=== PATIENT | female | born 1965 | race Caucasian/White ===

== ENCOUNTER 2017-02-20 05:17 | Inpatient (IN) | payer OTHER ==
[2017-02-15 10:47] VITALS: BMI 23.2
[~2017-02-20] VITALS: Ht 152.4 cm; Wt 54.4 kg
[2017-02-20] VITALS (17 sets, daily range): BP systolic 91–130; BP diastolic 52–85; PULSE 71–120; RESP 14–24; Ht 152.4 cm; Wt 54.4 kg
[~2017-02-20 05:17] MED LIST: ESCI20TA PO; MELA5TAB4 PO
[2017-02-20] MEDS ORDERED: CEFAZOLIN 2 GM/50 ML (PMX) 50 ML IVPB ONE (06:00)
[2017-02-20] MEDS ORDERED: LACTATED RINGER'S 1,000 ML IV* SCH ×2 (06:30)
[2017-02-20] MEDS ORDERED: BUPIVACAINE 0.25% (MPF) 10 ML 10 ML VIAL ONE (06:44)
[2017-02-20] MEDS ORDERED: GELATIN SIZE 100 SPONGE ONE (06:44)
[2017-02-20] MEDS ORDERED: POLYMYXIN/BACITRACIN 1L IRRIG ONE (06:44)
[2017-02-20] MEDS ORDERED: THROMBIN 5000 UNIT VIAL ONE (06:44)
--- NOTE | 2017-02-20 06:51 | HPN ---
Date/Time of Note Date/Time of Note DATE: 02/20/17 TIME: 06:51 Interval H&P Admission Note Pt. seen H&P reviewed: No system changes MARYELLEN CAMACHO MD Feb 20, 2017 06:51
[2017-02-20] MEDS ORDERED: ROCURONIUM 50 MG INJ ONE (06:59)
[2017-02-20] MEDS ORDERED: SUCCINYLCHOLINE CHLORIDE 100 MG/5 ML SYG IV ONE (06:59)
[2017-02-20] MEDS ORDERED: LIDOCAINE 1% (MDV) 20 ML INJ ONE (06:59)
[2017-02-20] MEDS ORDERED: MIDAZOLAM 1 MG/ML 2 ML INJ ONE (06:59)
[2017-02-20] MEDS ORDERED: PROPOFOL 20 ML ONE (06:59)
[2017-02-20] MEDS ORDERED: PHENYLephrine (100 MCG/ML) 5ML SYG ONE (07:11)
[2017-02-20] MEDS ORDERED: ONDANSETRON 4 MG INJ ONE (07:25)
[2017-02-20] MEDS ORDERED: DEXAMETHASONE 4 MG/ML 1 ML INJ ONE (07:25)
[2017-02-20] MEDS ORDERED: FAMOTIDINE 20 MG INJ ONE (07:25)
[2017-02-20] MEDS ORDERED: HYDROmorphONE (0.2 MG/ML) 10ML SYG IV PRN ×2 (09:00)
[2017-02-20] MEDS ORDERED: DIPHENHYDRAMINE 50 MG INJ IV PRN (09:00)
[2017-02-20] MEDS ORDERED: ONDANSETRON 4 MG INJ IV PRN ×2 (09:00→10:00)
[2017-02-20] MEDS ORDERED: LORAZEPAM 2 MG INJ IV PRN (09:00)
[2017-02-20] MEDS ORDERED: METOCLOPRAMIDE 10 MG INJ IV PRN (09:00)
[2017-02-20] MEDS ORDERED: MEPERIDINE 25 MG INJ IV PRN (09:00)
[2017-02-20] MEDS ORDERED: TRIMETHOBENZAMIDE 100 MG/ML VIAL IM PRN ×2 (09:00→10:00)
[2017-02-20] MEDS ORDERED: FENTAnyl 50 MCG/ML VIAL IV PRN ×2 (09:00)
[2017-02-20] MEDS ORDERED: SUGAMMADEX SODIUM 200 MG/2 ML VIAL IV ONE (09:24)
[2017-02-20] MEDS ORDERED: BETHANECHOL 25 MG TAB PO PRN (10:00)
[2017-02-20] MEDS ORDERED: NACL 0.9% 3 ML SYG IV SCH (10:00)
[2017-02-20] MEDS ORDERED: NALOXONE (0.4 MG/ML) INJ IV PRN (10:00)
[2017-02-20] MEDS ORDERED: DIAZEPAM 5 MG/ML SYG IM PRN (10:00)
[2017-02-20] MEDS ORDERED: DIAZEPAM 5 MG TAB PO PRN (10:00)
[2017-02-20] MEDS ORDERED: ZOLPIDEM 5 MG TAB PO PRN (10:00)
[2017-02-20] MEDS ORDERED: PROCHLORPERAZINE 10 MG TAB PO PRN (10:00)
[2017-02-20] MEDS ORDERED: ACETAMINOPHEN 325 MG TAB PO PRN (10:00)
[2017-02-20] MEDS ORDERED: AL HYDROX/MG HYDROX/SIMETH 30 ML CUP PO PRN (10:00)
[2017-02-20] MEDS ORDERED: CEPASTAT LOZENGE MT PRN (10:00)
[2017-02-20] MEDS ORDERED: HYDROCODONE/APAP (5/325) TAB PO PRN (10:00)
[2017-02-20] MEDS ORDERED: DIPHENHYDRAMINE 50 MG CAP PO PRN (10:00)
--- NOTE | 2017-02-20 10:03 | SIPON ---
Date/Time of Note Date/Time of Note DATE: 02/20/17 TIME: 09:54 Operative Report Preoperative Diagnosis Herniated disc at T9-10 on the left with extruded fragments Postoperative Diagnosis Same Operation/Procedure Performed Left hemilaminectomy T8 Left Hemilaminectomy T9 Partial left hemilaminectomy T10 Transpedicular microdiscectomy T9-10 on the left Cosmetic wound closure (10 cm) Multiple AP and lateral intraoperative fluoroscopic images Intraoperative nerve monitoring (90 minutes) Surgeon see signature line residential assistant Boston Cota MD Second assist: TOMASZ DE LOS SANTOS PA-C Anesthesia: general Estimated blood loss: 10 - 50 ml's Transfusion Required none Specimen Disk T9-10 Grafts/Implants none Complications none MARYELLEN CAMACHO MD Feb 20, 2017 10:03
[2017-02-20] MEDS: HYDROmorphONE 0.2 MG/ML PCA IV SCH ×2 (10:26→22:10)
--- NOTE | 2017-02-20 10:31 | RADRPT ---
PROCEDURE: Intraoperative imaging of the thoracic spine with fluoroscopy. CLINICAL INDICATION: Pain. Intraoperative. TECHNIQUE: 11 images of the thoracic spine were obtained in the operating room with an image inten sifier. No radiologist was in attendance. Fluoroscopy time is 16.9 seconds. COMPARISON: No prior study is available for comparison. FINDINGS: Images demonstrate surgical instruments overlying the thoracic spine inferiorly. IMPRESSION: 1. Intraoperative imaging of the thoracic spine. RPTAT: QQ .Tae Callejas MD, MD Date Time Electronically viewed and signed by .Tae Callejas MD, on 02/20/2017 10:30 .R/
[2017-02-20] MEDS: DEXTROSE 5%-0.45% NACL 1,000 ML IV SCH ×3 (10:59→22:09)
--- NOTE | 2017-02-20 11:09 | OPR ---
DATE OF OPERATION: 02/20/2017 POSTOPERATIVE DIAGNOSIS: Herniated disc, T9-10 on the left. Operation procedures. OPERATIVE PROCEDURES: 1. Left mao laminectomy T8. 2. Left mao laminectomy T9. 3. Partial left mao laminectomy T10. 4. Transpedicular microdiskectomy at T9-10 on the left. 5. Cosmetic wound closure (10 cm). 6. AP and lateral intraoperative fluoroscopic images (multiple). 7. Intraoperative nerve monitoring (90 minutes). SURGEON: 1. Shane Lincoln MD. ASSISTANTS: 1. Boston Cota MD. 2. 2nd addictions counselor assistant Rivas Barth. ESTIMATED BLOOD LOSS: Was 30 cc-none replaced. DRAINS: Two medium Hemovac drains applied. COMPLICATIONS: No complications. PERTINENT HISTORY AND PHYSICAL: This is a 52-year-old female with severe mid back pain radiating around the left intercostal rib cage area, which has been nonresponsive to extensive conservative management. She has undergone a number of diagnostic studies, which demonstrated a herniated disc at T9-10 on the left with cord compression. Treatment options discussed with the patient, and she would like to proceed with surgery. OPERATIVE FINDING AT SURGERY: A moderate extruded disc herniation at T9-10 on the left was confirmed with some free disc material on the floor of the canal underneath the cord. The intraoperative nerve monitor revealed a decrease in the left cord signal of 20 percent, which returned to normal at the completion of the surgery. OPERATIVE PROCEDURE: With the patient in supine position after satisfactory induction of general trach anesthesia by Dr. Frazier, the patient was turned to the prone position on the radiolucent OSI table with the Nathaniel frame. All pressure points were carefully padded. The back was prepped and draped in the usual sterile fashion. Athrombic pumps were applied to legs below the knees for venous stasis during and after procedure and an indwelling Rios catheter was also placed preoperative to facilitate bladder drainage during and after the procedure. A spinal needle was placed into what was felt the spinous process of T9 and a AP and a lateral fluoroscopic image taken which demonstrated the needle to be at T10. The 10 cm incision encountered midline from approximately T8-T11 through skin and subcutaneous tissue to the deep fascia after the skin was infiltrated with 0.25 percent Marcaine without epinephrine for postoperative analgesia. Superficial retractors were placed and hemostasis secured with electrocautery. A 2nd intraoperative radiograph was taken with a needle placed in what was felt to be the T9 spinous process. This was confirmed from the 2nd x-ray. A left mao laminectomy at T8, T9, and the superior part of T10 was then carried out using Kerrison punches and curettes and Leksell rongeurs. The high-speed [place] bur was then used to drill down the pedicle of T10 on the left and T9 on the left. This facilitated access to the floor of the canal without disturbing the cord. An extruded disc herniation at T9-10 on the left was confirmed and multiple degenerative disc fragments were harvested with pituitary rongeurs and Dustin curette and sent to the laboratory for pathologic study. The cord signals returned to normal at this point. The anesthesiologist was asked to perform a Valsalva maneuver 40 mmHg. No spinal fluid leak was noted. The epidural hemostasis was secured with bipolar electrocautery on a low setting. The wound was then closed over 2 medium Hemovac drains, one below the fascia, one above the fascia using number 1 Stratafix sutures on the deep parathoracic muscles and deep fascia, 2-0 Stratafix suture to the subcu tissue and a 4-0 Vicryl subcuticular cosmetic closing suture on the skin. Dermabond and sterile compressive dressings were applied. Patient tolerated the procedure well was then turned to supine position onto her bed and extubated by Dr. Frazier. She was transported to the recovery room in satisfactory condition. At the conclusion of the procedure, sponge, instrument, needle counts were all correct. NEED FOR STRUCTURAL BIOLOGIST: During this spinal surgical procedure, my addictions counselor assistant was used to retract and protect the spinal nerves and dural sac. My addictions counselor assistant also employed the suction catheters to evacuate blood from the surgical field to improve visualization of the neural structures. The addictions counselor assistant was medically necessary to facilitate the completion of the surgery in a safe and expeditious manner. State of [place] regulations, as well as hospital bylaws, preclude the use of non- licensed health care personnel such as operating room technicians, to perform these functions. Throughout the procedure neuro monitoring was carried out by [employer] including EMG, SSEP and MEP monitoring of the thoracic cord. This was interpreted by a neurologist employed by [employer]. Dictated By: Shane Lincoln MD /hannah/tali /Document#: [id number] CC: Boston Cota MD; Steven Molina MD
[2017-02-20] MEDS: CEFAZOLIN 1 GM/50 ML (PMX) 50 ML IVPB SCH ×2 (11:34→17:54)
--- NOTE | 2017-02-20 14:14 | CONS ---
Date/Time of Note Date/Time of Note DATE: 02/20/17 TIME: 14:00 Assessment/Plan Assessment/Plan Chief Complaint/Hosp Course upper and lower back pian post op thoracic spine surgery Problems: Additional Assessment/Plan will reorder pre-op meds and follow with you thank you anabela Consultation Date/Type/Reason Admit Date/Time Feb 20, 2017 at 05:17 Date of Consultation: Feb 20, 2017 Type of Consultation: internal medicine Reason for Consultation medical f/u and monitoring Referring Provider: MARYELLEN CAMACHO MD Constitutional: no complaints Eyes: no complaints ENT: no complaints Respiratory: no complaints Cardiovascular: no complaints Gastrointestinal: no complaints Genitourinary: no complaints Musculoskeletal: back pain Skin: no complaints Neurologic: dizziness, focal-weakness Endocrine: no complaints Psychological: no complaints Immunologic: no complaints Additional Comments post op thoracic spine surgery Past Medical History Medical History: no pertinent history Past Surgical History nose surgery in past Family History Significant Family History: heart disease, hypertension 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 Alcohol Use: occasionally Smoking Status: Never smoker Drug Use: none Exam/Review of Systems Vital Signs Vitals Vital Signs Date Time Temp Pulse Resp B/P Pulse Ox O2 Delivery O2 Flow Rate FiO2 02/20/17 13:00 16 02/20/17 11:21 98.0 02/20/17 11:00 Nasal Cannula 2.0 02/20/17 10:26 106 127/74 99 Exam Constitutional: alert ENMT: nl external ears & nose Neck: supple Respiratory: clear to auscultation Cardiovascular: regular rate and rhythm Gastrointestinal: soft Medications Medications Current Medications Lactated Ringer's 1,000 ml @ 20 mls/hr Q24H IV* ; Start 02/20/17 at 06:30; Stop 02/22/17 at 08:29 Lactated Ringer's 1,000 ml @ 20 mls/hr Q24H IV* ; Start 02/20/17 at 06:30; Stop 02/22/17 at 08:29 Dextrose/Sodium Chloride (D5-1/2ns) 1,000 ml @ 100 mls/hr Q10H IV Last administered on 02/20/17t 10:59; Admin Dose 100 MLS/HR; Start 02/20/17 at 09:48 Acetaminophen/ Hydrocodone Bitart ([place] (5/325)) 1 tab Q4H PRN PO PAIN LEVEL 1 -5; Start 02/20/17 at 10:00 Acetaminophen/ Hydrocodone Bitart 2 tab 2 tab Q4H PRN PO PAIN LEVEL 6-10; Start 02/20/17 at 10:00 Cefazolin Sodium (Ancef 1 Gm/50 ml (Pmx)) 50 ml @ 100 mls/hr Q6 IVPB Last administered on 02/20/17t 11:34; Admin Dose 100 MLS/HR; Start 02/20/17 at 12:00 ; Stop 02/21/17 at 06:29 Zolpidem Tartrate (Ambien) 5 mg HS PRN PO INSOMNIA; Start 02/20/17 at 10:00 Prochlorperazine (Compazine) 10 mg Q4H PRN PO NAUSEA AND/OR VOMITING; Start at 10:00 Trimethobenzamide HCl (Tigan) 200 mg Q4H PRN IM NAUSEA AND/OR VOMITING; Start 02/20/17 at 10:00 Ondansetron HCl (Zofran Inj) 4 mg Q6H PRN IV NAUSEA AND/OR VOMITING; Start at 10:00 Al Hydrox/Mg Hydrox/Simethicone (Mag-Al Plus) 15 ml Q4H PRN PO CONSTIPATION; Start 02/20/17 at 10:00 Docusate Sodium (Colace) 100 mg BID PO ; Start 02/21/17 at 09:00 Acetaminophen (Tylenol Tab) 650 mg Q4H PRN PO TEMP GREATER THAN 101F OR [place]; Start 02/20/17 at 10:00 Ascorbic Acid (Vitamin C) 1,000 mg BID PO ; Start 02/21/17 at 09:00 Ferrous Sulfate (Ferrous Sulfate (Ec)) 325 mg TID PO ; Start 02/21/17 at 09:00 Ranitidine HCl (Zantac) 150 mg BID PO ; Start 02/20/17 at 21:00 Diazepam (Valium) 5 mg Q4H PRN PO MUSCLE SPASMS; Start 02/20/17 at 10:00 Diazepam (Valium) 5 mg Q4H PRN IM MUSCLE SPASMS; Start 02/20/17 at 10:00 Phenol (Cepastat Lozenge) 1 lozenge PRN PRN MT SORE THROAT; Start 02/20/17 at 10:00 Bethanechol Chloride (Urecholine) 25 mg PRN PRN PO UNABLE TO VOID; Start at 10:00 Diphenhydramine HCl (Benadryl) 50 mg Q6H PRN PO PRURITUS; Start 02/20/17 at 10: 00 Hydromorphone HCl (Dilaudid ACCOUNTING MANAGER CPA) Q4PCA IV Last administered on 02/20/17t 10:26 ; Admin Dose 6 MG; Start 02/20/17 at 10:00 Naloxone HCl (Narcan) 0.2 mg Q2M PRN IV RR 8 BREATHS/MIN OR LESS; Start at 10:00 Procedures Procedures post thoracic spine surgery ANGELINE BLANCHARD MD Feb 20, 2017 14:10
[2017-02-20] MEDS: RANITIDINE 150 MG TAB PO SCH (20:56)
[2017-02-20] MEDS ORDERED: NON-FORMULARY/PATIENT OWN MED (Melatonin 5 MG) PO SCH (21:00)
[2017-02-21] MEDS: CEFAZOLIN 1 GM/50 ML (PMX) 50 ML IVPB SCH ×2 (00:59→06:11)
[2017-02-21 02:36] VITALS: BP 107/60; RESP 18
[2017-02-21 05:19] LABS: HEMATOCRIT 33.7 % (37.0-47.0)
[2017-02-21] MEDS: DEXTROSE 5%-0.45% NACL 1,000 ML IV SCH ×2 (05:35→15:48)
[2017-02-21 05:43] LABS: CALCIUM 8.4 mg/dl (8.4-10.2); CREATININE 0.67 mg/dl (0.44-1.00); POTASSIUM 3.9 mmol/L (3.5-5.1)
--- NOTE | 2017-02-21 07:05 | PN ---
Date/Time of Note Date/Time of Note DATE: 02/21/17 TIME: 07:04 Assessment/Plan Lines/Catheters IV Catheter Type (from Nrsg): Peripheral IV Rios in Place (from Nrsg): Yes Subjective 24 Hr Interval Summary The patient is postop day #1 following a microdiscectomy at T9-10 on the left. She is resting comfortably. Her morning lab work is unremarkable. Neurovascular structures are intact distally. Her Hemovac has minimal drainage and will be discontinued. Her incision is clean and dry and was redressed. She will be mobilized as tolerated with physical therapy, and discharged home when cleared by physical therapy. Discharge precautions and instructions as well as follow-up arrangements have been discussed. Exam/Review of Systems Vital Signs Vitals Vital Signs Date Time Temp Pulse Resp B/P Pulse Ox O2 Delivery O2 Flow Rate FiO2 02/21/17 06:54 17 02/21/17 02:36 97.9 72 107/60 97 02/20/17 20:00 Nasal Cannula 2.0 Intake and Output 02/20/17 02/20/17 02/21/17 15:00 23:00 07:00 Intake Total 1550 ml 1270 ml 640 ml Output Total 910 ml 890 ml 1402 ml Balance 640 ml 380 ml -762 ml Results Result Diagram: 02/21/17 0434 02/21/17 0434 MARYELLEN CAMACHO MD Feb 21, 2017 07:05
[2017-02-21 07:57] VITALS: BP 99/54; RESP 19
[2017-02-21] MEDS ORDERED: BETHANECHOL 25 MG TAB PO PRN (08:00)
[2017-02-21] MEDS: FERROUS SULFATE (EC) 325 MG TAB PO SCH ×2 (08:55→13:36)
[2017-02-21] MEDS: RANITIDINE 150 MG TAB PO SCH (08:56)
[2017-02-21] MEDS ORDERED: ESCITALOPRAM 10 MG TAB PO SCH (09:00)
[2017-02-21] MEDS ORDERED: DOCUSATE SODIUM 100 MG CAP PO SCH (09:00)
[2017-02-21] MEDS ORDERED: ASCORBIC ACID 500 MG TAB PO SCH (09:00)
[2017-02-21] MEDS: HYDROCODONE/APAP (5/325) TAB PO PRN ×2 (09:21→13:36)
[2017-02-21 12:54] VITALS: BP 88/50; RESP 18
[2017-02-21 13:11] LABS: ADD UMIC YES; UR ASCORBIC ACID NEGATIVE (NEGATIVE); UR BILIRUBIN (Dip) NEGATIVE (NEGATIVE); UR BLOOD (Dip) 2+ mg/dL (NEGATIVE); UR CLARITY CLEAR (CLEAR); UR COLOR YELLOW (YELLOW); UR GLUCOSE (Dip) NEGATIVE (NEGATIVE); UR KETONES (Dip) NEGATIVE (NEGATIVE); UR LEUKOCYTE ESTERASE (Dip) NEGATIVE Leu/ul (NEGATIVE); UR MUCUS FEW /HPF (NONE SEEN); UR NITRITE (Dip) NEGATIVE (NEGATIVE); UR RBC 5 /HPF (0-5); UR SPECIFIC GRAVITY (Dip) 1.015 (1.003-1.030); UR TOTAL PROTEIN (Dip) NEGATIVE (NEGATIVE); UR UROBILINOGEN (Dip) NEGATIVE (NEGATIVE)
--- NOTE | 2017-02-21 17:44 | CONS ---
Date/Time of Note Date/Time of Note DATE: 02/21/17 TIME: 17:41 Consult Date/Type/Reason Admit Date/Time Feb 20, 2017 at 05:17 Initial Consult Date 02/20/17 Type of Consultation: internal medicine Ordering Provider: MARYELLEN CAMACHO MD Subjective patient doing better got out of bed yesterday will be walking more today Objective Vital Signs Date Time Temp Pulse Resp B/P Pulse Ox O2 Delivery O2 Flow Rate FiO2 02/21/17 12:54 98.0 76 18 88/50 96 02/20/17 20:00 Nasal Cannula 2.0 Intake and Output 02/20/17 02/20/17 02/21/17 15:00 23:00 07:00 Intake Total 1550 ml 1270 ml 640 ml Output Total 910 ml 890 ml 1402 ml Balance 640 ml 380 ml -762 ml Exam vss heent negative lungs clear heart regular rhythm abd, soft Results/Medications Result Diagram: 02/21/17 0434 02/21/17 0434 Results 24 hrs Laboratory Tests Test 02/21/17 04:34 02/21/17 08:40 Hemoglobin 11.0 L Hematocrit 33.7 L Sodium Level 141 Potassium Level 3.9 Chloride Level 107 Carbon Dioxide Level 30 Anion Gap 8 Blood Urea Nitrogen 8 Creatinine 0.67 Glucose Level 126 Calcium Level 8.4 Urine Color YELLOW Urine Clarity CLEAR Urine pH 5.0 Urine Specific [place] 1.015 Urine Ketones NEGATIVE Urine Nitrite NEGATIVE Urine Bilirubin NEGATIVE Urine Urobilinogen NEGATIVE Urine Leukocyte Esterase NEGATIVE Urine Microscopic RBC 5 Urine Microscopic WBC 1 Urine Mucus FEW A Urine Hemoglobin 2+ H Urine Glucose NEGATIVE Urine Total Protein NEGATIVE Medications Current Medications Lactated Ringer's 1,000 ml @ 20 mls/hr Q24H IV* ; Start 02/20/17 at 06:30; Stop 02/22/17 at 08:29 Lactated Ringer's 1,000 ml @ 20 mls/hr Q24H IV* ; Start 02/20/17 at 06:30; Stop 02/22/17 at 08:29 Dextrose/Sodium Chloride (D5-1/2ns) 1,000 ml @ 100 mls/hr Q10H IV Last administered on 02/21/17t 05:35; Admin Dose 100 MLS/HR; Start 02/20/17 at 09:48 Acetaminophen/ Hydrocodone Bitart ([place] (5/325)) 1 tab Q4H PRN PO PAIN LEVEL 1 -5; Start 02/20/17 at 10:00 Acetaminophen/ Hydrocodone Bitart ([place] (5/325)) 2 tab Q4H PRN PO PAIN LEVEL 6 -10 Last administered on 02/21/17 13:36; Admin Dose 2 TAB; Start 02/20/17 at 10 :00 Zolpidem Tartrate (Ambien) 5 mg HS PRN PO INSOMNIA; Start 02/20/17 at 10:00 Prochlorperazine (Compazine) 10 mg Q4H PRN PO NAUSEA AND/OR VOMITING; Start at 10:00 Trimethobenzamide HCl (Tigan) 200 mg Q4H PRN IM NAUSEA AND/OR VOMITING; Start 02/20/17 at 10:00 Ondansetron HCl (Zofran Inj) 4 mg Q6H PRN IV NAUSEA AND/OR VOMITING; Start at 10:00 Al Hydrox/Mg Hydrox/Simethicone (Mag-Al Plus) 15 ml Q4H PRN PO CONSTIPATION; Start 02/20/17 at 10:00 Docusate Sodium (Colace) 100 mg BID PO Last administered on 02/21/17 08:56; Admin Dose 100 MG; Start 02/21/17 at 09:00 Acetaminophen (Tylenol Tab) 650 mg Q4H PRN PO TEMP GREATER THAN 101F OR [place]; Start 02/20/17 at 10:00 Ascorbic Acid (Vitamin C) 1,000 mg BID PO Last administered on 02/21/17 08:56 ; Admin Dose 1,000 MG; Start 02/21/17 at 09:00 Ferrous Sulfate (Ferrous Sulfate (Ec)) 325 mg TID PO Last administered on 13:36; Admin Dose 325 MG; Start 02/21/17 at 09:00 Ranitidine HCl (Zantac) 150 mg BID PO Last administered on 02/21/17 08:56; Admin Dose 150 MG; Start 02/20/17 at 21:00 Diazepam (Valium) 5 mg Q4H PRN PO MUSCLE SPASMS; Start 02/20/17 at 10:00 Diazepam (Valium) 5 mg Q4H PRN IM MUSCLE SPASMS; Start 02/20/17 at 10:00 Phenol (Cepastat Lozenge) 1 lozenge PRN PRN MT SORE THROAT; Start 02/20/17 at 10:00 Diphenhydramine HCl (Benadryl) 50 mg Q6H PRN PO PRURITUS; Start 02/20/17 at 10: 00 Hydromorphone HCl (Dilaudid DATA WAREHOUSE ARCHITECT) Q4PCA IV Last administered on 02/20/17 22:10 ; Admin Dose 6 MG; Start 02/20/17 at 10:00 Naloxone HCl (Narcan) 0.2 mg Q2M PRN IV RR 8 BREATHS/MIN OR LESS; Start at 10:00 Escitalopram Oxalate (Lexapro) 15 mg DAILY PO Last administered on 02/21/17 08 :56; Admin Dose 15 MG; Start 02/21/17 at 09:00 Bethanechol Chloride (Urecholine) 25 mg PRN PRN PO UNABLE TO VOID Last administered on 02/21/17 08:57; Admin Dose 25 MG; Start 02/21/17 at 08:00 Assessment/Plan Chief Complaint/Hosp Course upper and lower back pian post op thoracic spine surgery Problems: Additional Assessment/Plan patient medically stable plan per dr camacho thank you [facility] ANGELINE BLANCHARD MD Feb 21, 2017 17:44
== END 2017-02-21 17:25 | disposition home or self-care (01) | DRG 520 ==
LOC: REC 05:17 → MS1 10:50
PROVIDERS: ADMIT Orthopaedic Surgery; ATTEND Orthopaedic Surgery
PROC: 0RB90ZZ Excision of Thoracic Vertebral Disc, Open Approach (ICD-10-PCS; 2017-02-20)
PROC: 01N80ZZ Release Thoracic Nerve, Open Approach (ICD-10-PCS; principal; 2017-02-20 07:00)
DX: M51.24 Other intervertebral disc displacement, thoracic region (principal)
CPT/HCPCS: 72072; 80048; 81001; 85014; 85018; 86850; 86900; 86901; 86920; 87086; 88304; 97116; 97162; J0690; J1100; J1170; J2250; J2370; J2405; J3010; J7042; J7120; J7999

== ENCOUNTER 2017-11-13 05:27 | Inpatient (IN) | END 2017-11-15 18:45 | disposition home or self-care (01) | DRG 460 ==

== ENCOUNTER 2017-12-01 23:04 | Observation (INO) | END 2017-12-04 14:53 | disposition home or self-care (01) ==